=== PATIENT | male | born 1990 | race Caucasian/White ===

== ENCOUNTER 2021-06-12 06:18 | Day surgery (SDC) | payer BC ==
[2021-06-06 11:18] LABS: BASOPHILS % (AUTO) 0.3 % (0.0-5.0); EOSINOPHILS % (AUTO) 5.6 % (0.0-8.0); HEMATOCRIT 42.1 % (42-54); LYMPHOCYTES % (AUTO) 24.7 % (21.0-51.0); MEAN CORPUSCULAR HEMOGLOBIN 29.9 pg (27.0-33.0); MEAN CORPUSCULAR HGB CONC 34.7 g/dL (32.0-36.0); MEAN CORPUSCULAR VOLUME 86.3 fL (79-99); NEUTROPHILS % (AUTO) 60.1 % (40.0-77.0); PLATELET COUNT (AUTO) 242 K/uL (130-400); RED BLOOD CELL COUNT(AUTO) 4.88 MIL/uL (4.50-6.20); RED CELL DISTRIBUTION WIDTH 11.8 % (11.0-15.5); WHITE BLOOD COUNT (AUTO) 6.1 K/uL (4.8-10.8)
[2021-06-06 11:24] LABS: CREATININE 0.9 mg/dL (0.5-1.5); POTASSIUM 4.4 mmol/L (3.5-5.1)
[2021-06-11 09:11] VITALS: BP 115/74
[~2021-06-12] VITALS: Ht 185.4 cm; Wt 88.5 kg
[2021-06-12] VITALS (17 sets, daily range): BP systolic 115–131; BP diastolic 67–86
[~2021-06-12 06:18] MED LIST: CETI10TA57 PO; FLUT16H NASAL
[2021-06-12] MEDS ORDERED: CEFAZOLIN SODIUM 1 GM VIAL ONE ×2 (06:43→07:15)
[2021-06-12] MEDS ORDERED: LACTATED RINGERS 1000ML 1,000 ML IV ONE (06:43)
[2021-06-12] MEDS ORDERED: CLINDAMYCIN 900MG/6ML INJ ONE (07:30)
[2021-06-12] MEDS ORDERED: MIDAZOLAM HCL 1 MG/ML 2ML VIAL ONE ×2 (07:49→07:56)
[2021-06-12] MEDS ORDERED: SUCCINYLCHOLINE CHLORIDE 20 MG/ML 10 ML VIAL ONE (07:55)
[2021-06-12] MEDS ORDERED: LIDOCAINE PF 100MG/5ML (2%) SYRINGE 5ML ONE (07:55)
[2021-06-12] MEDS ORDERED: FENTANYL CITRATE PF 50 MCG/1 ML 2ML VIAL ONE ×2 (07:56→08:29)
[2021-06-12] MEDS ORDERED: ROCURONIUM 10MG/1ML SYR 10 MG/ML ML ONE (07:56)
[2021-06-12] MEDS ORDERED: PROPOFOL 10 MG/ML 20ML VIAL IV ONE (07:56)
[2021-06-12] MEDS ORDERED: ROPIVACAINE 0.5% 5MG/ML 30ML IJ ONE (08:00)
[2021-06-12] MEDS ORDERED: CEFAZOLIN SODIUM 2 GM VIAL IV ONE (08:17)
[2021-06-12] MEDS ORDERED: SCOPOLAMINE HYDROBROMIDE 1 EACH ADH..PATCH TD ONE (08:48)
[2021-06-12] MEDS ORDERED: KETOROLAC 30MG VIAL (30MG/ML) ONE (10:45)
[2021-06-12] MEDS ORDERED: MEPERIDINE-PF 25 MG/ML SYG ONE ×2 (10:57→11:11)
[2021-06-12] MEDS ORDERED: CLINDAMYCIN IVPB 600MG/50ML 50 ML IV SCH (12:00)
[2021-06-12] MEDS ORDERED: HYDROCODONE/ACETAMINOPHEN 10/325 MG TAB PO PRN (12:00)
== END 2021-06-12 12:35 | disposition home or self-care (01) ==
LOC: DAH 06:18
PROVIDERS: ATTEND Orthopaedic Surgery
DX: S83.512A Sprain of anterior cruciate ligament of left knee, initial encounter (principal); M22.42 Chondromalacia patellae, left knee; G89.18 Other acute postprocedural pain; J45.909 Unspecified asthma, uncomplicated; F15.90 Other stimulant use, unspecified, uncomplicated; X58.XXXA Exposure to other specified factors, initial encounter; Y93.89 Activity, other specified; Y92.89 Other specified places as the place of occurrence of the external cause; Y99.8 Other external cause status; Z88.0 Allergy status to penicillin; Z72.89 Other problems related to lifestyle; Z91.010 Allergy to peanuts; Z20.822 Contact with and (suspected) exposure to COVID-19; Z79.899 Other long term (current) drug therapy
CPT/HCPCS: 29888; 36415; 64447; 76942; 80048; 85025; 87635; A4213; A4215; A4221; A4222; A4223; A4649 ×4; A4663; A4930 ×2; A5120; A6223; C1713 ×2; C9803; J0330; J0690 ×2; J1885; J2001; J2175 ×2; J2250 ×2; J2704; J2795; J3010; J3490; J7120